=== PATIENT | male | born 1970 | race Hispanic/Latino ===

== ENCOUNTER 2017-01-29 14:30 | Inpatient (IN) ==
[2017-01-29] MEDS ORDERED: ZOFRAN ONE (14:59)
[2017-01-29] MEDS ORDERED: ZOFRAN IV ONE ×2 (15:02→15:06)
--- NOTE | 2017-01-29 15:30 | Diag Imaging Result Doc PS360 ---
HEAD W/O CONTRAST - 01/29/2017 INDICATION: altered mental status TECHNIQUE: A CT dose reduction protocol was used. COMPARISON: None FINDINGS: There is a superior right scalp contusion. No skull fractures. No intracranial mass or hemorrhage. There is some mild subcortical cerebral white matter hypodensity consistent with chronic microvascular disease. This also affects the [place]. The sinuses are clear. IMPRESSION: 1. Right superior frontal scalp contusion. 2. Mild chronic microvascular disease. 3. No intracranial hemorrhage. Electronically signed by Paul Garcia 01/29/2017 3:28 PM
--- NOTE | 2017-01-29 15:31 | Diag Imaging Result Doc PS360 ---
CHEST-1 VIEW - 01/29/2017 INDICATION: altered mental status TECHNIQUE: COMPARISON: None FINDINGS: There are surgical clips in the region of the right hilum. There are surgical suture lines in the right lung base. The right lung demonstrates volume loss suggesting a prior lobectomy. Overall lung volumes are low. No focal infiltrates, pneumothorax, or pleural effusion. Heart size is grossly normal. IMPRESSION: Low lung volumes. No acute disease. Electronically signed by Paul Garcia 01/29/2017 3:29 PM
[2017-01-29 16:12] LABS: MANUAL DIFF NEEDED? NO
[2017-01-29 16:12] LABS: URINE CULTURE NEEDED? NO; URINE MICRO REVIEW NEEDED? NO; URINE SOURCE CLEAN CATCH
[2017-01-29 16:18] LABS: BILIRUBIN URINE NEGATIVE (NEGATIVE); BLOOD URINE MODERATE (NEGATIVE); COLOR YELLOW; GLUCOSE URINE 500 mg/dL (NEGATIVE); LEUKOCYTES URINE NEGATIVE (NEGATIVE); NITRITE URINE NEGATIVE (NEGATIVE); PH URINE 6.5; PROTEIN URINE 100 mg/dL (NEGATIVE); SP GRAVITY URINE 1.008; TURBIDITY URINE CLEAR (CLEAR); UROBILINOGEN URINE NORMAL (NORMAL)
[2017-01-29 16:19] LABS: UR EPITHELIAL CELLS <10 /HPF (<10); URINE BACTERIA NEGATIVE /HPF; URINE RBC <10 /HPF (<10); URINE WBC <10 /HPF (<10)
[2017-01-29 16:20] LABS: BASO% 0.1 % (0.0-0.8); EOS# 0.02 X1000 (0.0-0.7); EOS% 0.3 % (0.0-10.0); HEMATOCRIT 45.6 % (42.0-52.0); HEMOGLOBIN 15.6 g/dL (14.0-18.0); LYMPH# 0.89 X1000 (1.2-3.4); MCH 33.1 PG (27-31); MCHC 34.2 g/dL (33-37); MCV 96.8 FL (81-99); MONO# 0.85 X1000 (0.11-0.59); MONO% 12.4 % (1.7-9.3); MPV 11.4 FL (7.4-10.4); NEUT% 74.2 % (42.2-75.2); PLT 71 X1000 (130-400); RBC 4.71 XMIL (4.7-6.1)
[2017-01-29 16:26] LABS: UR AMPHETAMINES QUAL NONE DETECTED (NONE DETECT); UR BARBITUATES QUAL NONE DETECTED (NONE DETECT); UR BENZODIAZEPIN QUAL NONE DETECTED (NONE DETECT); UR CANNABINOIDS QUAL NONE DETECTED (NONE DETECT); UR COCAINE QUAL NONE DETECTED (NONE DETECT); UR METHADONE QUAL NONE DETECTED (NONE DETECT); UR OPIATES QUAL NONE DETECTED (NONE DETECT); UR OXYCODONE QUAL NONE DETECTED (NONE DETECT); UR PCP QUAL NONE DETECTED (NONE DETECT)
[2017-01-29] MEDS ORDERED: NS 1,000 ML IV ONE ×3 (16:29→19:36)
[2017-01-29 16:52] LABS: AGAP 18; ALBUMIN 5.4 g/dL (3.5-5.0); ALKALINE PHOSPHATASE 79 U/L (32-122); BUN 5 mg/dL (8-22); CALCIUM 9.6 mg/dL (8.8-10.2); CHLORIDE 87 mmol/L (98-107); COSMO 270; GOT 158 U/L (10-34); GPT 78 U/L (10-44); POTASSIUM 3.2 mmol/L (3.5-5.1); SODIUM 134 mmol/L (136-145); TCO2 29 mmol/L (25-35); TOTAL BILIRUBIN 1.68 mg/dL (0.20-1.00); TOTAL PROTEIN 8.9 g/dL (6.3-8.3)
[2017-01-29] MEDS ORDERED: ATIVAN IV ONE (17:16)
[2017-01-29] MEDS ORDERED: ZOFRAN IV PRN (17:40)
[2017-01-29] MEDS ORDERED: ATIVAN IV PRN (17:40)
[2017-01-29] MEDS ORDERED: M.V.I.-12 10 ML, FOLIC ACID 1 MG, MAGNESIUM SULFATE 1 GM, THIAMINE 100 MG in NS 1,000 ML IV ONE (17:40)
--- NOTE | 2017-01-29 17:46 | PROVIDER DOCUMENTATION ---
This chart was entered by Sage Smith Scribe, acting as scribe for Jacob Greenberg MD. HPI-Neurological Disorder - General Chief Complaint: Unresponsive Stated Complaint: UNRESPONSIVE Time Seen by Provider: 01/29/17 14:38 Source: EMS, RN notes reviewed Unable to obtain history due to:: altered Allergies/Adverse Reactions: Patient Allergies Allergy/AdvReac Type Severity Reaction Status Date / Time No Known Allergies Allergy Verified 01/29/17 14:57 Home Medications: Home Medication List Medication Instructions Recorded Confirmed Last Taken Type Unobtainable [Home Meds 01/29/17 01/29/17 Unknown History Unobtainable] - History of Present Illness-Neuro Nature of Presenting Problem: Patient is a 47 yo/ M that presents to the ER via EMS after being found unresponsive in the middle of the street. patient has had vomiting since. it appears he might have hit his head but patient is unsure. Headache Location: reports: frontal (right) Severity: reports: moderate, severe Onset/Duration: reports: unsure Timing: reports: improving Context: reports: found unresponsive by bystander, head injury (questionable) Character of Altered Mental Status: reports: unresponsive New weakness or altered sensation location:: reports: none Cognitive Baseline: alert, oriented x3 Gait Baseline: walks without assistance Associated Symptoms: reports: nausea, vision changes. denies: headache, neck/ back pain, seizures, sleepy, slurred speech Similar Symptoms Previously?: No Recently seen or treated by another doctor?: No Review of Systems - Adult - REVIEW OF SYSTEMS - ADULT ROS:: limited per condition Constitutional: denies: chills, fever Eyes: denies: decreased vision, blurred vision, double vision Ears, Nose, Mouth & Throat: reports: no symptoms reported Cardiovascular: reports: no symptoms reported Respiratory: reports: no symptoms reported Gastrointestinal: reports: nausea, vomiting Genitourinary: reports: no symptoms reported Musculoskeletal: reports: no symptoms reported Integumentary: reports: no symptoms reported Neurological: reports: other (unresponsive moment). denies: numbness Psychiatric: reports: no symptoms reported Endocrine: reports: no symptoms reported Hematologic/Lymphatic: reports: no symptoms reported Allergic/Immunologic: reports: no symptoms reported All Other Systems: Reviewed and Negative Past History - Adult - PAST MEDICAL HISTORY-ADULT Review of Records: reports: Old Records Reviewed, Nursing Assessment Review, Medications Reviewed - PRIOR SURGERIES/PROCEDURES Surgical/Procedure History: reports: reviewed, not pertinent - IMMUNIZATION STATUS Childhood Immunizations: See Nurse Assessment Flu Vaccine: See Nurse Assessment - FAMILY HISTORY Family History: reviewed, not pertinent - SOCIAL HISTORY Living Situation: family Physical Exam- Neurological - Physical Exam-Neuro Initial Vital Signs Reviewed: Yes General Appearance: alert, mild distress, anxious Eye Exam: bilateral eye: PERRL HENMT: normal ENT inspection Neck: full range of motion, normal inspection. 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 nml as tested, no motor/sensory deficits Integumentary: warm/dry, abrasion(s) (right forehead) Psych/Mental Status: normal mood/affect, oriented x 3 - Glascow Coma Scale Best Eye Response: (4) open spontaneously Best Verbal Response: (5) oriented Best Motor Response: (6) obeys commands Total Glascow Score: 15 Progress - PLAN OF CARE/RESULTS Progress/Plan/Lab Results: Vital Signs - 8 hr 01/29/17 14:38 01/29/17 16:20 Temperature 98.3 F Pulse Rate 109 H 118 H Respiratory Rate 18 18 Blood Pressure 179/115 151/117 O2 Sat by Pulse Oximetry 100 98 Laboratory Results - last 24 hr 01/29/17 01/29/17 01/29/17 15:00 15:00 15:00 WBC RBC Hgb Hct MCV MCH MCHC RDW Std Deviation Plt Count MPV Immature Gran % (Auto) Neut % (Auto) Lymph % (Auto) [place] % (Auto) Eos % (Auto) Baso % (Auto) Immature Gran # (Auto) Neut # (Auto) Lymph # (Auto) [place] # (Auto) Eos # (Auto) Baso # (Auto) Sodium 134 L Potassium 3.2 L Chloride 87 L Carbon Dioxide 29 Anion Gap 18 BUN 5 L Creatinine 1.0 Estimated GFR/1.73 m2 > 60 BUN/Creatinine Ratio 5 Glucose 183 H Calculated Osmolality 270 Calcium 9.6 Total Bilirubin 1.68 H AST 158 H ALT 78 H Alkaline Phosphatase 79 Troponin T < 0.010 Total Protein 8.9 H Albumin 5.4 H Globulin 3.5 Albumin/Globulin Ratio 1.5 Urine Source Urine Color Urine Turbidity Urine pH Ur Specific [place] Urine Protein Ur Glucose (Stick) Ur Ketones (Stick) Urine Blood Urine Nitrite Urine Bilirubin Urobilinogen Dipstick Urine Leukocytes Urine WBC (Auto) Urine RBC (Auto) U Epithel Cells (Auto) Urine Bacteria (Auto) Urine Opiates Screen Ur Oxycodone Screen Ur Methadone, Qual Ur Barbiturates Screen Ur Phencyclidine Scrn Ur Amphetamines Screen U Benzodiazepines Scrn Urine Cocaine Screen U Cannabinoids Screen Plasma/Serum Ethyl Alc 22 H 01/29/17 01/29/17 01/29/17 15:00 15:47 15:47 WBC 6.84 RBC 4.71 Hgb 15.6 Hct 45.6 MCV 96.8 MCH 33.1 H MCHC 34.2 RDW Std Deviation 13.8 Plt Count 71 L MPV 11.4 H Immature Gran % (Auto) 0.0 Neut % (Auto) 74.2 Lymph % (Auto) 13.0 L [place] % (Auto) 12.4 H Eos % (Auto) 0.3 Baso % (Auto) 0.1 Immature Gran # (Auto) 0.00 Neut # (Auto) 5.07 Lymph # (Auto) 0.89 L [place] # (Auto) 0.85 H Eos # (Auto) 0.02 Baso # (Auto) 0.01 Sodium Potassium Chloride Carbon Dioxide Anion Gap BUN Creatinine Estimated GFR/1.73 m2 BUN/Creatinine Ratio Glucose Calculated Osmolality Calcium Total Bilirubin AST ALT Alkaline Phosphatase Troponin T Total Protein Albumin Globulin Albumin/Globulin Ratio Urine Source CLEAN CATCH Urine Color YELLOW Urine Turbidity CLEAR Urine pH 6.[address] [place] 1.008 Urine Protein 100 A Ur Glucose (Stick) 500 A Ur Ketones (Stick) 10 A Urine Blood MODERATE A Urine Nitrite NEGATIVE Urine Bilirubin NEGATIVE Urobilinogen Dipstick NORMAL Urine Leukocytes NEGATIVE Urine WBC (Auto) <10 Urine RBC (Auto) <10 U Epithel Cells (Auto) <10 Urine Bacteria (Auto) NEGATIVE Urine Opiates Screen NONE DETECTED Ur Oxycodone Screen NONE DETECTED Ur Methadone, Qual NONE DETECTED Ur Barbiturates Screen NONE DETECTED Ur Phencyclidine Scrn NONE DETECTED Ur Amphetamines Screen NONE DETECTED U Benzodiazepines Scrn NONE DETECTED Urine Cocaine Screen NONE DETECTED U Cannabinoids Screen NONE DETECTED Plasma/Serum Ethyl Alc Orders Category Date Time Status HEAD W/O CONTRAST [CT] Stat Exams 01/29/17 15:03 Completed cxr [CHEST-1 VIEW] [RAD] Stat Exams 01/29/17 15:08 Completed ACETAMINOPHEN [TDM] Stat Lab 01/29/17 17:41 Ordered CBC WITH ELECTRONIC DIFF [HEME] Stat Lab 01/29/17 15:00 Completed COMPREHENSIVE METABOLIC PANEL [CHEM] Stat Lab 01/29/17 15:00 Completed ETOH [ALCOHOL BLOOD] Stat Lab 01/29/17 15:00 Completed SALICYLATES [TDM] Stat Lab 01/29/17 17:41 Ordered TROPONIN T Stat Lab 01/29/17 15:00 Completed UA NIMS W/REFLEX CULT [URINALYSIS] Stat Lab 01/29/17 15:47 Completed URINE DRUG SCREEN Stat Lab 01/29/17 15:47 Completed 0.9% Sodium Chloride Inj [Ns] 1,000 ml Med 01/29/17 16:29 Discontinued IV 999 mls/hr 0.9% Sodium Chloride Inj [Ns] 1,000 ml Med 01/29/17 16:30 Discontinued IV 999 mls/hr Insulin Lispro [Humalog] Med 01/29/17 21:00 Active See Protocol SUBQ 0700,1100,1600,2100 Lorazepam [Ativan] Med 01/29/17 17:40 Active 1 mg IV Q4H PRN PRN Lorazepam [Ativan] Med 01/29/17 17:16 Discontinued 2 mg IV NOW ONE Lorazepam [Ativan] Med 01/29/17 17:40 Active 2 mg IV Q4H PRN PRN Mvi [M.v.i.-12] 10 ml Med 01/29/17 17:45 Ordered Folic Acid 1 mg Magnesium Sulfate 1 gm Thiamine 100 mg 0.9% Sodium Chloride Inj [Ns] 1,000 ml IV DAILY Mvi [M.v.i.-12] 10 ml Med 01/29/17 17:40 Active Folic Acid 1 mg Magnesium Sulfate 1 gm Thiamine 100 mg 0.9% Sodium Chloride Inj [Ns] 1,000 ml IV ONCE Ondansetron [Zofran] Med 01/29/17 17:40 Active 4 mg IV Q4H PRN PRN Ondansetron [Zofran] Med 01/29/17 14:59 Discontinued 8 mg .ROUTE .STK-MED ONE Ondansetron [Zofran] Med 01/29/17 15:02 Discontinued 8 mg IV NOW ONE Ondansetron [Zofran] Med 01/29/17 15:06 Discontinued 8 mg IV NOW ONE EKG [EKG] Stat Ther 01/29/17 14:47 Ordered Transfer/Admit Order [TRANSFER] Routine Transfer 01/29/17 17:36 Ordered Result Diagrams: 01/29/17 15:00 01/29/17 15:00 - CT/MRI 1 CT Study: Head Impression: Abnormal CT Results: scalp contusion, microvascular changes, nad - CONSULTS/PCP/HOSPITALIST Notification #1 *Consult/PCP/Hospitalist*: Time Discussed: 17:45 Consult Disposition: Will see in ED, Admit Departure - Departure Date of Disposition Decision: 01/29/17 Time of Disposition Decision: 17:45 DIAGNOSIS: Altered mental status, Dehydration, Nausea & vomiting Disposition: ADMITTED INPATIENT 09 Certified Medical Emergency: Emergent Condition: Stable - Critical Care Note This patient required my direct & personal management of CC.: Yes Total Time (mins): 35 Critical Care Statement: This patient required my direct personal management to treat or rule out processes, the absence of which, could potentiallly result in sudden, clinically significant life or limb threatening deterioration. Attestation - Physician/ NAZIA Attestation The physician spent face to face time with patient:: Yes Advanced Practice Provider documentation review:: Supervising physician onsite and consulted in the evaluation and care of this patient. The physician did have a face to face encounter with the patient. This chart was documented by the indicated scribe, (Sage Smith, Nery) and accurately reflects the services I performed and decisions made by me, Jacob Greenberg MD, as attested by the provider's signature.
[2017-01-29 18:02] LABS: ACETAMINOPHEN < 1.2 ug/mL (10-30)
[2017-01-29] MEDS ORDERED: KLOR-CON PO ONE (18:05)
[2017-01-29] MEDS ORDERED: KEPPRA PO ONE (18:09)
[2017-01-29] MEDS ORDERED: M.V.I.-12 10 ML, FOLIC ACID 1 MG, MAGNESIUM SULFATE 1 GM, THIAMINE 100 MG in NS 1,000 ML IV SCH (18:15)
[2017-01-29] MEDS ORDERED: NS 1,000 ML ONE (18:46)
--- NOTE | 2017-01-29 18:51 | HISTORY AND PHYSICAL ---
CHIEF COMPLAINT: Altered mental status. HISTORY OF PRESENT ILLNESS: A 47-year-old male with a past medical history of diabetes, seizure disorder and hypertension was brought to the emergency department via the EMS after being found unresponsive in the middle of the street. As per the patient, he was found at home. He states that he took a nap at noon and then after that he does not remember anything. As per the patient also, he was found by his family. When he woke up, he was already at the hospital. Apparently he vomited and he hit his head at the level of the right frontal area. He states that he does not take any kind of medication for blood pressure or seizures, and sometimes he takes treatment for diabetes, but he does not remember the name of the pill. Apparently, the last time that he had a seizure was 5 years ago and he does not remember if he has been on any kind of seizure treatment before. His alcohol level was 22 and as per the patient, he only drinks 2-3 times per week and only to 1-2 beers. Today, he drank a beer in the morning. At the moment of my physical examination, this patient was completely alert and oriented x3, he only speaks [place], he was following commands and moving all 4 extremities. Since apparently this patient has a seizure disorder, I will admit this patient to the ICU. I will ask for an EEG. CT scan of the head was already done at the emergency department and showed right superior frontal scalp contusion, mild chronic microvascular disease and no intracranial hemorrhage. Laboratory showed mild hyponatremia as well as hypokalemia. Glucose was 183. AST and ALT are elevated. Albumin was 5.4. REVIEW OF SYSTEMS: All the 14 points of the review of system were reviewed, all of them negative except as stated as per HPI. PAST SURGICAL HISTORY: Apparently he had a thoracic tube placed on the right side because of a pleural effusion, but apparently that was also infected and they decided to do an upper open thoracotomy. He did not say any specific details about it, but this was done back in 2016. PAST MEDICAL HISTORY: Diabetes, hypertension, seizure disorder. SOCIAL HISTORY: He is . He lives with his family. 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 He does not smoke or do drugs, and apparently he drinks 3 times per week, only beers and only 1-2 beers a day. PHYSICAL EXAMINATION: VITAL SIGNS: Temperature 98.3 degrees, pulse 118, respiratory rate 20, blood pressure 154/107, O2 saturation 96% on room air. HEENT: Head normocephalic. He has a right forehead edema secondary to trauma. NECK: Is supple. No JVD. No masses. Central trachea. CHEST: Clear to auscultation. No wheezing. No rales. He has a noted scar on the right side. ABDOMEN: Soft, mild tenderness to palpation at the level of the right upper quadrant. Nondistended. EXTREMITIES: No edema. No clubbing. No cyanosis. NEUROLOGICAL: The patient is alert and oriented x3. He moves all 4 extremities. He is answering all my questions. LABORATORY: WBC 6.8, hemoglobin 15.6, hematocrit 45.6, platelets 71,000. Sodium 134, potassium 3.2, chloride 87, bicarbonate 29, BUN 5, creatinine 1, glucose 183, AST 158. ALT 78. Total bilirubin 1.6. Albumin 5.4. ASSESSMENT AND PLAN: 1. Seizure disorder, I want to give him a 1 time dose of Keppra and tomorrow we will re-evaluate this patient. I will also ask for an EEG and probably I will ask for Neurology evaluation and follow up. 2. Type 2 diabetes, uncontrolled. I will ask for a hemoglobin A1c. His blood sugar is elevated. I will do sliding scale insulin and pattern of blood sugar. 3. High blood pressure. I will put this patient on amlodipine twice a day. I will monitor his blood pressure at the ICU. 4. Thrombocytopenia. I do not have any past records of this patient. I will monitor. I am not quite sure. Probably this patient has a chronic liver disease secondary to alcohol abuse, but he denies that. 5. Possible alcohol abuse as above. This patient will be transferred to the ICU because of the seizure disorder. He will be on Ativan p.r.n., blood pressure medication and insulin. He will be placed on IV fluids, banana bag. I asked already for an abdominal ultrasound and an EEG. I will continue to monitor. cc: Ilia Tejada MD
[2017-01-29 19:38] LABS: URINE CULTURE NEEDED? NO; URINE MICRO REVIEW NEEDED? NO; URINE SOURCE CATH
[2017-01-29] MEDS: M.V.I.-12 10 ML, FOLIC ACID 1 MG, MAGNESIUM SULFATE 1 GM, THIAMINE 100 MG in NS 1,000 ML IV SCH (19:47)
[2017-01-29 19:51] LABS: BILIRUBIN URINE NEGATIVE (NEGATIVE); BLOOD URINE MODERATE (NEGATIVE); COLOR STRAW; GLUCOSE URINE 300 mg/dL (NEGATIVE); LEUKOCYTES URINE NEGATIVE (NEGATIVE); NITRITE URINE NEGATIVE (NEGATIVE); PROTEIN URINE 50 mg/dL (NEGATIVE); SP GRAVITY URINE 1.007; TURBIDITY URINE CLEAR (CLEAR); UROBILINOGEN URINE NORMAL (NORMAL)
[2017-01-29 19:52] LABS: UR EPITHELIAL CELLS <10 /HPF (<10); URINE BACTERIA NEGATIVE /HPF; URINE RBC <10 /HPF (<10); URINE WBC <10 /HPF (<10)
[2017-01-29] MEDS: ATIVAN IV PRN (19:52)
[2017-01-29] MEDS: TYLENOL PO PRN (19:57)
[2017-01-29] MEDS: NORVASC PO SCH (19:59)
[2017-01-29] MEDS: HUMALOG SUBQ SCH (20:00)
--- NOTE | 2017-01-29 22:11 | Diag Imaging Result Doc PS360 ---
US ABDOMEN-COMPLETE - 01/29/2017 INDICATION: RUQ pain, R/O cirrhosis COMPARISON: None FINDINGS: Exam is very challenging due to excessive bowel gas. The liver is of severely increased echotexture with significant shadowing. No liver masses. The gallbladder, and kidneys are normal. Pancreas and spleen are obscured. No obvious free fluid. Common bile duct measures 5 mm. Aorta, IVC, and main portal vein are obscured. IMPRESSION: Very challenging exam. Severely abnormal liver probably fatty liver disease. Electronically signed by Paul Garcia 01/29/2017 10:09 PM
[2017-01-30 04:54] LABS: MANUAL DIFF NEEDED? NO
[2017-01-30 05:06] LABS: BASO% 0.1 % (0.0-0.8); EOS# 0.01 X1000 (0.0-0.7); EOS% 0.1 % (0.0-10.0); HEMATOCRIT 43.5 % (42.0-52.0); LYMPH# 0.91 X1000 (1.2-3.4); LYMPH% 12.4 % (20.5-51.1); MCH 33.6 PG (27-31); MCHC 34.5 g/dL (33-37); MCV 97.3 FL (81-99); MONO# 0.85 X1000 (0.11-0.59); MONO% 11.6 % (1.7-9.3); NEUT% 75.8 % (42.2-75.2); PLT 56 X1000 (130-400); RBC 4.47 XMIL (4.7-6.1)
[2017-01-30 05:24] LABS: AGAP 19; ALBUMIN 4.2 g/dL (3.5-5.0); ALKALINE PHOSPHATASE 62 U/L (32-122); BUN 7 mg/dL (8-22); CALCIUM 9.1 mg/dL (8.8-10.2); CHLORIDE 97 mmol/L (98-107); COSMO 277; GOT 133 U/L (10-34); GPT 65 U/L (10-44); POTASSIUM 3.1 mmol/L (3.5-5.1); SODIUM 139 mmol/L (136-145); TCO2 23 mmol/L (25-35); TOTAL BILIRUBIN 1.99 mg/dL (0.20-1.00); TOTAL PROTEIN 7.5 g/dL (6.3-8.3)
[2017-01-30 05:25] LABS: IRON SATURATION 48 %; TIBC 312 ug/dL
[2017-01-30 05:28] LABS: HEMOGLOBIN A1C 6.2 % (4.8-6.0)
[2017-01-30 05:33] LABS: HDL 121 mg/dL (35-55); LDL 96 mg/dL; TOTAL IRON 151 ug/dL (53-167); TRIGLYCERIDES 56 mg/dL (39-160); UNBOUND IRON 161 ug/dL (112-346); VLDL 11 mg/dL
[2017-01-30] MEDS: HUMALOG SUBQ SCH ×5 (06:01→21:00)
[2017-01-30] MEDS ORDERED: KLOR-CON PO ONE (08:32)
[2017-01-30] MEDS ORDERED: MISC. PHARMACY COMMUNICATION SCH (08:45)
[2017-01-30] MEDS ORDERED: KEPPRA PO SCH (09:00)
[2017-01-30] MEDS: NORVASC PO SCH ×2 (09:09→20:21)
[2017-01-30 10:55] LABS: HEPATITIS PROFILE ACUTE SEE COMMENTS
--- NOTE | 2017-01-30 11:54 | EKG Report ---
Test Performed on : 01/30/2017 08:52:43 AM Test Reason : ICU. Not ordered in [place] Blood Pressure : / mmHG Vent. Rate : 090 BPM Atrial Rate : 090 BPM P-R Int : 174 ms QRS Dur : 096 ms QT Int : 382 ms P-R-T Axes : 049 -13 031 degrees QTc Int : 467 ms Normal sinus rhythm. Normal ECG When compared with ECG of 29-JAN-2017 15:42, Questionable change in QRS axis Nonspecific ST and T wave abnormality early precordial leads Confirmed by Neptali Murry DO ([id number]) on 02/01/2017 10:31:08 AM
--- NOTE | 2017-01-30 14:16 | PROGRESS NOTE ---
DATE: 01/30/2017 SUBJECTIVE: Mr. Love is resting comfortably in bed, no acute events overnight. He is tolerating p.o. He is alert and oriented x3, he looks stable. I will transfer this patient to the floor. OBJECTIVE: Vital Signs: Temperature 98.5 degrees, pulse 88, respiratory rate 20, blood pressure 130/86, oxygen saturation 98 on 2 L of nasal cannula. HEENT: Head normocephalic. PERRLA. He has a right forehead edema secondary to trauma. Neck: Supple. No JVD. No masses. Central trachea. Chest: Clear to auscultation. No wheezing. No rales. He has a scar on the right side. Abdomen: Soft. Mild distended. Tympanic. Mild tenderness to palpation on the level of the right upper quadrant. Positive bowel sounds. Extremities: No edema. No clubbing. No cyanosis. Neurological: The patient is alert and oriented x3. He is answering all my questions. He moves all 4 extremities. LABORATORY: WBC 7.35, hemoglobin 15, hematocrit 43.5, platelets 56,000. Sodium 139, potassium 3.1, chloride 97, bicarbonate 23, BUN 7, creatinine 0.7, glucose 125. Hemoglobin A1c 6.2. Calcium 9.1. ASSESSMENT AND PLAN: 1. Seizure disorder. I talked to a family member today, Mrs. Cavazos, and she states that this patient is an alcoholic. This patient told me that he was found at home because he fell off his couch but Mrs. Cavazos states that he was found on the street. And I asked her about his past medical history and she corroborated this information about seizure disorder. For now, we will continue with Don twice a day, Neurology on board, we will follow their recommendations. Hopefully tomorrow we will discharge this patient. Pending EEG. 2. Type 2 diabetes. Hemoglobin A1c is 6.2. I will continue with the same management for now. 3. Hypertension. Continue with amlodipine twice a day. The blood pressure at this moment is the 130s. We will monitor. 4. Thrombocytopenia. This is likely secondary to liver problems, I did an ultrasound that showed the possibility of fatty liver and also showed excessive gas. Will monitor. 5. Alcohol abuse. This patient has been highly advised against alcohol abuse. I will continue with daily cessation education but he does not seem to be honest with me. I think he will not quit drinking at this moment. I had a large conversation with one of the family members, Mrs. Cavazos, her phone number [phone], daily in the same house. Per . Macy this patient drinks every day and she believes that probably more than 8 cans of beer daily. CRITICAL CARE TIME: 35 minutes. cc: Ilia Tejada MD
--- NOTE | 2017-01-30 14:59 | CONSULTATION ---
DATE OF CONSULTATION: 01/30/2017 HISTORY OF PRESENT ILLNESS: Mr. Love is 47 years old. He has apparent previous history of seizures with uncertain features, frequency, management. I believe that he has not taken medicine to control seizures over the years. I am not certain when the first seizure episode occurred. He presented this time with significant serum ethanol level. Urine drug screen was negative otherwise. Labs showed sodium 134, glucose 183, nothing else remarkable. He has not had a definite seizure recognized since admission. There is reported to be past history of hypertension and diabetes mellitus and he was not taking medicines for those problems. Workup includes noncontrast CT of the head reported to show evidence of right scalp contusion but no evidence of intracranial problem. EEG completed this morning shows left frontotemporal epileptiform discharge but no electrographic seizure recorded. He has had levetiracetam 500 mg b.i.d. since admission. He has had p.r.n. lorazepam but I do not think he has required a dose of that in the last 12 hours or so. PHYSICAL EXAMINATION: On exam, he is awake, alert, attentive, appropriate. Speech is not dysarthric. He followed simple commands when he could understand them. He did well on finger-to- nose testing. I observed him feeding himself using both hands, chewing and swallowing without difficulty. Head and neck are unremarkable. Visual field is full. I did not test his gait. IMPRESSION/PLAN: Reported history of seizures, this time found down and brought to the emergency room with significant ethanol level and some early evidence of global encephalopathy, based on his family report. That resolved and he has been awake and alert here with no further seizure apparent. I do not have a history to suggest definite focal feature to previous seizures, but the EEG findings are consistent with likely left hemisphere focus. I presume that he had a seizure at home responsible for his transient disturbed consciousness and rapid spontaneous recovery. In light of his history of previous seizures and EEG findings, I agree that he needs to be treated with medicine for seizure control. Levetiracetam is a good choice and he seems to be tolerating that, thus far. I will empirically increase his dose to 750 mg b.i.d., and I will be glad to see him again if needed. I encouraged him to consider ethanol abstinence. We briefly discussed risk for seizure with ethanol withdrawal but he does not appear to have ethanol withdrawal now and I do not think ethanol withdrawal was responsible for this episode. I am not certain about possible association of ethanol withdrawal and some of his previous seizure episodes. Thanks for asking me to see Mr. Love. cc: MD AMOR Ibarra III
--- NOTE | 2017-01-30 15:13 | EEG REPORT ---
DATE: 01/29/2017 COMMENT: This is a digitally recorded EEG, done portably in the ICU, on a 47- year-old patient with reported previous history of seizures, possible recent seizure. FINDINGS: Portions of the record are obscured by muscle contraction and movement artifact but overall interpretation is not hindered. There is epileptiform discharge with phase reversal at the F3 electrode, mostly sharp wave and repetitive sharp wave discharge. No electrographic seizure was recorded. Background contains polymorphic and rhythmic theta frequencies at low amplitude across the hemispheres symmetrically. There was not sustained posterior dominant rhythm identified. Drowsing occurred briefly. Stage 2 sleep was not recorded. INTERPRETATION: Abnormal EEG because of left frontotemporal epileptiform discharge. CORRELATION: This would correlate with clinical seizure. cc: MD Ilia Ibarra III, MD [facility]
[2017-01-30] MEDS: ATIVAN IV PRN ×2 (16:31→20:21)
[2017-01-30] MEDS ORDERED: LIBRIUM PO ONE (16:42)
[2017-01-30 18:29] LABS: INR 1.14; PROTIME 12.1 Seconds (9.2-11.7)
[2017-01-30] MEDS: LIBRIUM PO SCH (20:21)
[2017-01-30] MEDS: KEPPRA PO SCH (20:21)
[2017-01-30] MEDS ORDERED: VALIUM IV ONE (22:33)
[2017-01-30] MEDS ORDERED: VALIUM ONE (22:34)
[2017-01-30] MEDS ORDERED: GEODON ONE (22:42)
[2017-01-30] MEDS ORDERED: STERILE WATER INJ. INJ PRN (22:55)
[2017-01-30] MEDS ORDERED: GEODON IM PRN (22:55)
[2017-01-30] MEDS ORDERED: PHENOBARBITAL IV PRN (23:13)
[2017-01-30] MEDS: M.V.I.-12 10 ML, FOLIC ACID 1 MG, MAGNESIUM SULFATE 1 GM, THIAMINE 100 MG in NS 1,000 ML IV SCH (23:29)
[2017-01-31] MEDS: LIBRIUM PO SCH ×4 (01:27→20:35)
[2017-01-31] MEDS: ATIVAN IV PRN ×8 (01:27→18:09)
[2017-01-31] MEDS: HUMALOG SUBQ SCH ×6 (01:48→20:40)
[2017-01-31] MEDS: PHENOBARBITAL IV PRN ×3 (03:48→11:24)
[2017-01-31 06:28] LABS: MANUAL DIFF NEEDED? NO
[2017-01-31 06:35] LABS: BASO% 0.2 % (0.0-0.8); EOS# 0.05 X1000 (0.0-0.7); EOS% 0.8 % (0.0-10.0); HEMATOCRIT 43.5 % (42.0-52.0); HEMOGLOBIN 14.8 g/dL (14.0-18.0); LYMPH# 0.87 X1000 (1.2-3.4); LYMPH% 14.2 % (20.5-51.1); MCH 33.3 PG (27-31); MONO# 0.76 X1000 (0.11-0.59); MONO% 12.4 % (1.7-9.3); MPV 11.4 FL (7.4-10.4); NEUT% 72.4 % (42.2-75.2); PLT 69 X1000 (130-400); RBC 4.44 XMIL (4.7-6.1)
[2017-01-31 06:56] LABS: AGAP 14; ALBUMIN 4.5 g/dL (3.5-5.0); ALKALINE PHOSPHATASE 67 U/L (32-122); BUN 13 mg/dL (8-22); CALCIUM 9.2 mg/dL (8.8-10.2); CHLORIDE 99 mmol/L (98-107); COSMO 273; GOT 259 U/L (10-34); GPT 119 U/L (10-44); POTASSIUM 3.3 mmol/L (3.5-5.1); SODIUM 136 mmol/L (136-145); TCO2 23 mmol/L (25-35); TOTAL BILIRUBIN 1.69 mg/dL (0.20-1.00); TOTAL PROTEIN 7.7 g/dL (6.3-8.3)
[2017-01-31] MEDS: KEPPRA PO SCH ×2 (08:04→08:09)
[2017-01-31] MEDS: NORVASC PO SCH ×3 (08:04→20:35)
[2017-01-31] MEDS ORDERED: KLOR-CON PO ONE (08:17)
[2017-01-31] MEDS ORDERED: VALIUM ONE (08:46)
[2017-01-31] MEDS ORDERED: VALIUM IV ONE (08:49)
[2017-01-31] MEDS ORDERED: M.V.I.-12 10 ML, FOLIC ACID 1 MG, MAGNESIUM SULFATE 1 GM, THIAMINE 100 MG in NS 1,000 ML IV SCH (09:00)
[2017-01-31] MEDS: 1/2 NS 1,000 ML IV SCH ×2 (10:05→17:34)
[2017-01-31] MEDS: POTASSIUM CHLORIDE 20 MEQ/SWI 20 MEQ/100 ML IVPB IV SCH ×2 (10:05→13:49)
[2017-01-31] MEDS: KEPPRA 750 MG in NS 100 ML IV SCH ×2 (10:24→20:47)
--- NOTE | 2017-01-31 10:29 | PROGRESS NOTE ---
DATE: 01/31/2017 SUBJECTIVE: Mr. Love today is having alcohol withdrawal. That started yesterday. Also, he is having DTs. This patient has been placed in 4-point restraints, and he is getting benzodiazepines, including diazepam, Ativan, and Librium. He will stay in the ICU for close monitoring. OBJECTIVE: Vital signs: Temperature 98.6, pulse 108, respiratory rate 25, blood pressure 134/85, oxygen saturation 100% on 2 L of nasal cannula. HEENT: Head normocephalic, no trauma, JENELLE. Neck: Supple, no JVD, no masses. Central trachea. Chest: Clear to auscultation, no wheezing or rales. Abdomen: Soft, mildly distended, nontender to palpation, positive bowel sounds. Extremities: No edema, no clubbing, no cyanosis. Neurological: The patient is alert. He is able to answer his name, but he is disoriented, and he looks like he is having visual hallucinations, as well. He is moving all 4 extremities. LABORATORY DATA: WBC 6.1, hemoglobin 14.8, hematocrit 43.5, platelets 69. Sodium 136, potassium 3.3, chloride 99, bicarbonate 23, BUN 13, creatinine 0.8, glucose 108, calcium 9.2. Total bilirubin 1.69, AST 259, ALT 119. ASSESSMENT AND PLAN: 1. Alcohol withdrawal with delirium tremens. I talked to the family yesterday, Mrs. Cavazos, and she states that this patient is an alcoholic, even though he has been denying this. Today, he is having alcohol withdrawal and DTs. Continue with the benzodiazepines, 4-point restraints for now. 2. Seizure disorder. Continue with Keppra, but I will switch the Keppra from p.o. to IV. Neurology department is following this patient. 3. Type 2 diabetes. Hemoglobin A1c is 6.2. Continue with the same management for now. 4. Hypertension, stable. Continue with the same treatment. 5. Thrombocytopenia. This is likely secondary to liver disease. I did an ultrasound that showed the possibility of fatty liver, and also it showed excessive gas. 6. Alcohol abuse. I will continue with daily cessation education once this patient is better. Critical care time 35 minutes. cc: Ilia Tejada MD
[2017-01-31] MEDS: M.V.I.-12 10 ML, FOLIC ACID 1 MG, MAGNESIUM SULFATE 1 GM, THIAMINE 100 MG in NS 1,000 ML IV SCH (13:49)
[2017-01-31] MEDS ORDERED: VALIUM IV PRN (14:49)
[2017-01-31] MEDS ORDERED: ZYPREXA ZYDIS SL PRN (16:10)
[2017-01-31] MEDS: ATIVAN 20 MG in NS 190 ML IV SCH (17:06)
[2017-02-01] MEDS: ATIVAN IV PRN ×5 (00:15→22:30)
[2017-02-01] MEDS: HUMALOG SUBQ SCH ×6 (00:25→20:37)
[2017-02-01] MEDS: LIBRIUM PO SCH ×4 (02:11→20:27)
[2017-02-01] MEDS: 1/2 NS 1,000 ML IV SCH ×4 (02:11→20:28)
[2017-02-01] MEDS: ATIVAN 20 MG in NS 190 ML IV SCH ×2 (02:22→16:41)
[2017-02-01 06:23] LABS: AGAP 18; ALBUMIN 3.8 g/dL (3.5-5.0); ALKALINE PHOSPHATASE 56 U/L (32-122); BUN 9 mg/dL (8-22); CALCIUM 8.5 mg/dL (8.8-10.2); CHLORIDE 99 mmol/L (98-107); COSMO 280; GOT 271 U/L (10-34); GPT 135 U/L (10-44); POTASSIUM 3.3 mmol/L (3.5-5.1); SODIUM 141 mmol/L (136-145); TCO2 24 mmol/L (25-35); TOTAL BILIRUBIN 1.62 mg/dL (0.20-1.00)
[2017-02-01 06:50] LABS: HEMATOCRIT 39.7 % (42.0-52.0); HEMOGLOBIN 13.7 g/dL (14.0-18.0); MCH 33.9 PG (27-31); MCHC 34.5 g/dL (33-37); MCV 98.3 FL (81-99); MPV 10.3 FL (7.4-10.4); RBC 4.04 XMIL (4.7-6.1)
[2017-02-01] MEDS: KEPPRA 750 MG in NS 100 ML IV SCH ×2 (08:24→20:28)
[2017-02-01] MEDS: NORVASC PO SCH ×2 (08:25→20:27)
[2017-02-01] MEDS ORDERED: APRESOLINE IV PRN (08:38)
--- NOTE | 2017-02-01 09:15 | PROGRESS NOTE ---
DATE: 02/01/2017 SUBJECTIVE: Yesterday, Mr. Love was having more agitation. He was placed on an Ativan drip. Today, apparently he has been agitated even with this treatment until 5 a.m. today. At this moment, this patient is resting comfortably in bed. His blood pressure has been elevated. I will put this patient on a nicotine patch. OBJECTIVE: Vital Signs: Temperature 99.1 degrees, pulse 77, respiratory rate 18, blood pressure on the monitor 167/99, oxygen saturation 100% on room air. HEENT: Head normocephalic. No trauma. PERRLA. Neck: Supple. No JVD. No masses. Central trachea. Chest: Clear to auscultation. No wheezing. No rales. Abdomen: Soft. Mildly distended. Nontender to palpation. Extremities: No edema. No clubbing. No cyanosis. Neurological Examination: This patient is sleepy. He is on an Ativan drip so he is not answering or following commands. Laboratory: WBC 5.4, hemoglobin 13.7, hematocrit 39.7, platelets 72,000. Sodium 141, potassium 3.3, chloride 99, bicarbonate 24, BUN 9, creatinine 0.6, glucose 102, calcium 8.5. AST 271, ALT 135, alkaline phosphatase 56. ASSESSMENT AND PLAN: 1. Alcohol withdrawal with delirium tremens. I will continue for now with the Ativan drip. At this moment, this patient is stable. We will continue to monitor closely. 2. Alcoholic hepatitis. Continue to monitor. Stable. 3. Seizure disorder. Continue with Keppra intravenously. 4. Type 2 diabetes. Hemoglobin A1c is 6.2. Continue with the same management for now. Stable. 5. Hypertension. I have placed this patient on clonidine patch. 6. Thrombocytopenia. This is likely secondary to liver disease. I did an ultrasound that showed the possibility of fatty liver and also showed excessive gas. 7. Alcohol abuse. I will continue with daily cessation education, what this patient is more aware. CRITICAL CARE TIME: 35 minutes. cc: Ilia Tejada MD
[2017-02-01] MEDS: CATAPRES-TTS-1 TD SCH (09:17)
[2017-02-01] MEDS ORDERED: M.V.I.-12 10 ML, FOLIC ACID 1 MG, MAGNESIUM SULFATE 1 GM, THIAMINE 100 MG in NS 1,000 ML IV SCH (14:00)
[2017-02-01] MEDS: M.V.I.-12 10 ML, FOLIC ACID 1 MG, MAGNESIUM SULFATE 1 GM, THIAMINE 100 MG in NS 1,000 ML IV SCH (14:11)
[2017-02-02] MEDS: 1/2 NS 1,000 ML IV SCH ×3 (02:03→22:06)
[2017-02-02] MEDS: LIBRIUM PO SCH ×5 (02:03→22:06)
[2017-02-02] MEDS: HUMALOG SUBQ SCH ×6 (02:03→22:06)
[2017-02-02] MEDS: ATIVAN IV PRN (03:16)
[2017-02-02 05:36] LABS: MANUAL DIFF NEEDED? NO
[2017-02-02 06:23] LABS: BASO% 0.4 % (0.0-0.8); EOS# 0.08 X1000 (0.0-0.7); EOS% 1.5 % (0.0-10.0); HEMATOCRIT 45.1 % (42.0-52.0); HEMOGLOBIN 15.4 g/dL (14.0-18.0); LYMPH# 1.08 X1000 (1.2-3.4); LYMPH% 20.1 % (20.5-51.1); MCH 33.3 PG (27-31); MCHC 34.1 g/dL (33-37); MCV 97.4 FL (81-99); MONO# 0.99 X1000 (0.11-0.59); MONO% 18.4 % (1.7-9.3); MPV 10.3 FL (7.4-10.4); NEUT% 59.6 % (42.2-75.2); PLT 80 X1000 (130-400); RBC 4.63 XMIL (4.7-6.1)
[2017-02-02 08:26] LABS: AGAP 21; ALKALINE PHOSPHATASE 68 U/L (32-122); BUN 7 mg/dL (8-22); CALCIUM 8.9 mg/dL (8.8-10.2); CHLORIDE 94 mmol/L (98-107); COSMO 272; GOT 220 U/L (10-34); GPT 136 U/L (10-44); POTASSIUM 3.2 mmol/L (3.5-5.1); SODIUM 137 mmol/L (136-145); TCO2 22 mmol/L (25-35); TOTAL BILIRUBIN 1.25 mg/dL (0.20-1.00); TOTAL PROTEIN 7.4 g/dL (6.3-8.3)
[2017-02-02] MEDS: NORVASC PO SCH ×2 (08:42→22:06)
[2017-02-02] MEDS: KEPPRA 750 MG in NS 100 ML IV SCH ×2 (08:42→22:05)
[2017-02-02] MEDS: ATIVAN 20 MG in NS 190 ML IV SCH (10:25)
--- NOTE | 2017-02-02 12:27 | PROGRESS NOTE ---
DATE: 02/02/2017 SUBJECTIVE: This patient looks a little bit better today. He is awake. He is tolerating p.o. He is confused. He is oriented to person. Vital signs have been stable. We will continue with the alcohol withdrawal protocol. OBJECTIVE: Vital Signs: Temperature 97.6 degrees, pulse 94, respiratory rate 18, blood pressure 127/89, oxygen saturation 100% on room air. HEENT: Head normocephalic. No trauma. PERRLA. Neck: Supple. No JVD. No masses. Central trachea. Chest: Clear to auscultation. No wheezing. No rales. Abdomen: Soft. Mildly distended. Nontender to palpation. Extremities: No edema. No clubbing. No cyanosis. Neurological: This patient is alert. He is oriented x1, just to person. He is tolerating p.o. He is moving all 4 extremities. He has been agitated on and off. LABORATORY: WBC 5.3, hemoglobin 15.4, hematocrit 45.1, platelet 80,000. Sodium 137, potassium 3.2, chloride 94, bicarbonate 22, BUN 7, creatinine 0.7, glucose 98, calcium 8.9. ASSESSMENT AND PLAN: 1. Alcohol withdrawal with delirium tremens. Continue for now. We will continue with alcohol withdrawal protocol. He is on Ativan drip. He is stable but he is still confused. He is still in physical restraints because he has been trying to pull out his Davila and lines. Family members are at the bedside. All of their questions were answered. 2. Alcoholic hepatitis. Continue to monitor. 3. Seizure disorder. Continue with Keppra IV. 4. Type 2 diabetes. Hemoglobin A1c is 6.2. Continue with the same management for now. Stable. 5. Hypertension. Continue with clonidine patch. 6. Thrombocytopenia, likely secondary to liver disease. We did an ultrasound that showed the possibility of fatty liver and also showed excessive gas. 7. Alcohol abuse. I will continue with daily cessation education once this patient is more awake and alert. CRITICAL CARE TIME: 35 minutes. cc: Ilia Tejada MD
[2017-02-02] MEDS: M.V.I.-12 10 ML, FOLIC ACID 1 MG, MAGNESIUM SULFATE 1 GM, THIAMINE 100 MG in NS 1,000 ML IV SCH (14:27)
--- NOTE | 2017-02-02 16:18 | PROGRESS NOTE ---
DATE: 02/02/2017 Mr. Love had some restlessness and required benzodiazepine over the weekend. This morning, his attentive bilingual son is at the bedside and reports patient looks much improved. With son present, I did some bedside language testing and Mr. Love has a little bit of trouble with right/left distinction, digit distinction, naming parts of objects and he has some trouble finding words when speaking. Son reports similar problems with language apparent to family over the years when patient has been intoxicated and when he is in withdrawal. Son is aware of problems with seizure over at least the last few years and son believes seizure medications have been recommended at least once in the past but patient has not been compliant with that. We need to continue to follow clinically, consider repeat brain imaging if there is persistent language deficit but that is not urgent. I do not think another EEG would record changer today. I encouraged Mr. Love, with son serving as seismograph chief, to take his seizure medicine and to consider ethanol abstinence. No other suggestions today. cc: MD AMOR Ibarra III
[2017-02-03] MEDS: 1/2 NS 1,000 ML IV SCH ×4 (02:34→19:43)
[2017-02-03] MEDS: LIBRIUM PO SCH ×4 (02:35→19:43)
[2017-02-03] MEDS: ATIVAN 20 MG in NS 190 ML IV SCH (04:00)
[2017-02-03 05:03] LABS: AGAP 13; ALBUMIN 4.1 g/dL (3.5-5.0); ALKALINE PHOSPHATASE 64 U/L (32-122); BUN 6 mg/dL (8-22); CALCIUM 8.7 mg/dL (8.8-10.2); CHLORIDE 100 mmol/L (98-107); COSMO 275; GOT 142 U/L (10-34); GPT 109 U/L (10-44); SODIUM 139 mmol/L (136-145); TCO2 26 mmol/L (25-35); TOTAL BILIRUBIN 0.73 mg/dL (0.20-1.00); TOTAL PROTEIN 6.6 g/dL (6.3-8.3)
[2017-02-03] MEDS: HUMALOG SUBQ SCH ×4 (06:56→21:30)
[2017-02-03] MEDS ORDERED: KLOR-CON PO ONE (08:24)
[2017-02-03] MEDS: NORVASC PO SCH ×2 (08:55→20:45)
[2017-02-03] MEDS: KEPPRA 750 MG in NS 100 ML IV SCH ×2 (08:55→20:45)
--- NOTE | 2017-02-03 09:58 | PROGRESS NOTE ---
DATE: 02/03/2017 SUBJECTIVE: This patient looks a little bit better today. He is alert. He is oriented x3. He knows he is in the hospital; he does not know which one. He has been having trouble talking, but apparently this is not new. It is some kind of dysarthria. He has been on Ativan drip. I will start this patient on Librium and I will continue to monitor this patient in the ICU. He is tolerating p.o. very well. OBJECTIVE: Vital Signs: Temperature 97.9 degrees, pulse 77, respiratory rate 19, blood pressure 129/88, oxygen saturation 95% on room air. HEENT: Head normocephalic. No trauma. PERRLA. Neck: Supple. No JVD. No masses. Central trachea. Chest: Clear to auscultation. No wheezing. No rales. Abdomen: Soft, nontender, nondistended. No hepatosplenomegaly. Extremities: No edema. No clubbing. No cyanosis. Neurological examination: The patient is alert. He is oriented x3. He knows he is in the hospital. He does not know which one. He has some dysarthria. I do not see any focal weakness. LABORATORY: Sodium 139, potassium 3, chloride 100, bicarbonate 26, BUN 6, creatinine 0.7, glucose 90, calcium 8.7, total bilirubin 0.7. AST 142, ALT 109, alkaline phosphatase 64. ASSESSMENT AND PLAN: 1. Alcohol withdrawal with delirium tremens. I will start this patient on Librium and eventually I will stop the Ativan drip, p.r.n. Ativan as well. We will continue to monitor this patient closely in the ICU unit. 2. Alcoholic hepatitis. Numbers are getting better. We will continue to monitor. 3. Seizure disorder. Continue with Keppra. 4. Type 2 diabetes. Hemoglobin A1c 6.2. Continue with the same management for now. Stable. 5. Hypertension. Continue with clonidine patch. 6. Thrombocytopenia likely secondary to liver disease. We did an ultrasound that showed the possibility of fatty liver and also showed excessive gas. 7. Alcohol abuse. This patient has been highly advised against alcohol use. I will continue with daily cessation education. CRITICAL CARE TIME: 30 minutes. cc: Ilia Tejada MD
[2017-02-03] MEDS: M.V.I.-12 10 ML, FOLIC ACID 1 MG, MAGNESIUM SULFATE 1 GM, THIAMINE 100 MG in NS 1,000 ML IV SCH (14:05)
[2017-02-04] MEDS: 1/2 NS 1,000 ML IV SCH ×3 (01:48→16:30)
[2017-02-04] MEDS: LIBRIUM PO SCH ×4 (01:48→20:22)
[2017-02-04] MEDS: HUMALOG SUBQ SCH ×4 (06:05→21:10)
[2017-02-04] MEDS: NORVASC PO SCH ×2 (08:00→20:23)
[2017-02-04] MEDS: KEPPRA 750 MG in NS 100 ML IV SCH ×2 (08:00→20:58)
[2017-02-04 09:13] LABS: ALBUMIN 3.8 g/dL (3.5-5.0); ALKALINE PHOSPHATASE 68 U/L (32-122); BUN 4 mg/dL (8-22); CHLORIDE 96 mmol/L (98-107); GOT 116 U/L (10-34); GPT 103 U/L (10-44); TCO2 27 mmol/L (25-35); TOTAL BILIRUBIN 0.67 mg/dL (0.20-1.00); TOTAL PROTEIN 7.1 g/dL (6.3-8.3)
[2017-02-04 10:03] LABS: AGAP 13; CALCIUM 9.3 mg/dL (8.8-10.2); COSMO 270; POTASSIUM 3.8 mmol/L (3.5-5.1); SODIUM 135 mmol/L (136-145)
--- NOTE | 2017-02-04 12:54 | PROGRESS NOTE ---
DATE: 02/04/2017 SUBJECTIVE: The patient definitely is more alert and awake. Oriented x3. Ativan drip has been stopped. Yesterday he did not require any Ativan pushes from last night. OBJECTIVE: Vital Signs: Temperature 99.6 degrees, heart rate 108, respiratory rate 20, blood pressure 156/104, O2 saturation 96% on room air. General Examination: This is a 47-year-old, disheveled male, lying in bed, in no acute distress. HEENT: Head is normocephalic, atraumatic. Anicteric sclerae and pale conjunctivae. Mucous membranes moist. Neck: Supple. No JVD noted. No carotid bruits. No lymphadenopathy. No thyromegaly. Cardiovascular: S1, S2 heard. No murmurs, gallops, or rubs. Regular rate and rhythm. Respiratory: Clear bilaterally to auscultation. No work of breathing or using accessory muscles. Abdomen: Soft. Nontender to palpation. Bowel sounds present. No organomegaly. Extremities: No clubbing, cyanosis, or edema. Peripheral pulses present in both legs. Neurological: Patient is alert and oriented x3. Moves 4 extremities. Cranial nerves 2 through 12 grossly normal. LABORATORY DATA: White cell count 5.7, hemoglobin 15.4, hematocrit 45.1, platelets 80,000. BMP shows blood sodium 135 and glucose 148. ASSESSMENT AND PLAN: 1. Alcohol withdrawal with delirium tremens. As per nurse, the patient has been doing fine and Ativan drip has been stopped yesterday. He did not require any Ativan pushes from that time. At this point, we are going to continue with Librium. We are going to transfer this patient out of the unit today. 2. Alcoholic hepatitis. Aware. 3. Seizure disorder. We will continue with Keppra. We had a conversation with Dr. Downs and apparently this patient has been advised to continue with seizure medications for awhile. So at this point, Dr. Downs and I agreed to advise him to continue taking that medication. He will need to follow up after the patient leaves the hospital. 4. Diabetes type 2. Hemoglobin 6.2 which means very good control of diabetes. We will continue with sliding scale insulin. 5. Hypertension. The patient is on clonidine patch. 6. Alcohol abuse. Patient has been highly advised again to quit drinking alcohol. 7. Disposition. Patient is going to be transferred out of the unit today. CRITICAL CARE TIME: 40 minutes. cc: Gordo Pereira MD
[2017-02-04] MEDS: M.V.I.-12 10 ML, FOLIC ACID 1 MG, MAGNESIUM SULFATE 1 GM, THIAMINE 100 MG in NS 1,000 ML IV SCH (13:58)
[2017-02-04] MEDS: LIORESAL PO SCH (16:05)
[2017-02-05] MEDS: 1/2 NS 1,000 ML IV SCH ×2 (01:43→21:05)
[2017-02-05] MEDS: LIBRIUM PO SCH ×4 (01:43→21:08)
[2017-02-05] MEDS: HUMALOG SUBQ SCH ×4 (06:40→21:08)
[2017-02-05] MEDS: LIORESAL PO SCH ×3 (09:40→21:08)
[2017-02-05] MEDS: KEPPRA 750 MG in NS 100 ML IV SCH ×2 (09:40→21:08)
[2017-02-05] MEDS: NORVASC PO SCH ×2 (09:40→21:08)
[2017-02-05] MEDS: M.V.I.-12 10 ML, FOLIC ACID 1 MG, MAGNESIUM SULFATE 1 GM, THIAMINE 100 MG in NS 1,000 ML IV SCH (14:43)
[2017-02-05] MEDS: TYLENOL PO PRN (14:44)
--- NOTE | 2017-02-05 16:28 | PROGRESS NOTE ---
DATE: 02/05/2017 SUBJECTIVE: Patient reports feeling fine. According to nursing staff, he did not require any more Ativan IV. OBJECTIVE: Vital Signs: Temperature 99 degrees, heart rate 100, respiratory rate 16, blood pressure 132/72, O2 saturation 95% on room air. General examination: This is a 47-year-old disheveled male, lying in bed, in no acute distress. HEENT: Head is normocephalic, atraumatic. Anicteric sclerae and pale conjunctivae. Neck: Supple. No JVD noted. Cardiovascular: S1, S2 heard. No murmurs, gallops, or rubs. Respiratory: Clear bilaterally to auscultation. No work of breathing or using accessory muscles. Abdomen: Soft, nontender to palpation. Bowel sounds present. No organomegaly. Extremities: No clubbing, cyanosis, or edema. Peripheral pulses present in both legs. Neurological: Patient is alert and oriented x3. Moves 4 extremities. Cranial nerves 2-12 grossly normal. LABORATORY DATA: There is no laboratory from today. ASSESSMENT AND PLAN: 1. Alcohol withdrawal with delirium tremens. Patient has been moved from the intensive care unit yesterday. He is not requiring any more Ativan. We are going to continue with the Librium and we have added baclofen to his current treatment. 2. Alcoholic hepatitis. Aware. 3. Seizure disorder. Patient will continue with Keppra at discharge as per Dr. Downs. 4. Diabetes mellitus type 2. Very well controlled. We will continue with sliding scale insulin. 5. Hypertension. Patient is on clonidine patch. 6. Alcohol abuse. Patient highly advised to quit drinking alcohol. 7. Disposition. Physical Therapy has been consulted because the patient has become very weak while he was here and we will see what they recommend, if he needs to have any home health or going to rehab. cc: Gordo Pereira MD
[2017-02-05] MEDS ORDERED: LOPRESSOR IV ONE (22:37)
[2017-02-05] MEDS ORDERED: NS 500 ML IV ONE (22:38)
[2017-02-06] MEDS: ATIVAN IV PRN ×3 (00:46→15:13)
[2017-02-06] MEDS: LIBRIUM PO SCH ×4 (02:21→18:37)
[2017-02-06] MEDS: 1/2 NS 1,000 ML IV SCH ×4 (02:25→23:38)
[2017-02-06] MEDS: HUMALOG SUBQ SCH ×4 (06:03→21:34)
--- NOTE | 2017-02-06 07:41 | EKG Report ---
Test Performed on : 02/05/2017 10:17:21 PM Test Reason : increased HR on tele Blood Pressure : / mmHG Vent. Rate : 137 BPM Atrial Rate : 137 BPM P-R Int : 160 ms QRS Dur : 088 ms QT Int : 264 ms P-R-T Axes : 032 176 031 degrees QTc Int : 398 ms Sinus tachycardia. with premature ventricular complexes. or fusion complexes Indeterminate axis Borderline ECG When compared with ECG of 30-JAN-2017 08:52, Vent. rate has increased BY 47 BPM Nonspecific T wave abnormality, improved in early precordial leads V2-V3/septal Confirmed by Neptali Murry DO ([id number]) on 02/08/2017 8:44:36 AM
[2017-02-06] MEDS: LIORESAL PO SCH ×3 (09:21→18:36)
[2017-02-06] MEDS: KEPPRA 750 MG in NS 100 ML IV SCH ×2 (09:21→21:34)
[2017-02-06] MEDS: NORVASC PO SCH ×2 (09:21→21:34)
[2017-02-06] MEDS: M.V.I.-12 10 ML, FOLIC ACID 1 MG, MAGNESIUM SULFATE 1 GM, THIAMINE 100 MG in NS 1,000 ML IV SCH (15:12)
[2017-02-06] MEDS: TYLENOL PO PRN (15:13)
--- NOTE | 2017-02-06 18:28 | PROGRESS NOTE ---
DATE: 02/06/2017 SUBJECTIVE: Patient reports feeling fine. He reports still feeling weak. He is able to walk with physical therapy and will be using a walker. OBJECTIVE: Vital Signs: Temperature 98.5 degrees, heart rate 88, respiratory rate 16, blood pressure 100/ on room air. General examination: This is a 27-year-old, disheveled male, lying in bed, in no acute distress. HEENT: Head is normocephalic, atraumatic. Anicteric sclerae and pale conjunctivae. Mucous membranes moist. Neck: Supple. No JVD noted. Cardiovascular: S1, S2 heard. No murmurs, gallops, or rubs. Regular rate and rhythm. Respiratory: Clear bilaterally to auscultation. No work of breathing or using accessory muscles. Abdomen: Soft, nontender to palpation. Bowel sounds present. No organomegaly. Extremities: No clubbing, cyanosis, or edema. Peripheral pulses present in both legs. Neurological: Patient alert oriented x3. Moves 4 extremities. Cranial nerves 2-12 grossly normal. LABORATORY DATA: No labs from today. ASSESSMENT AND PLAN: 1. Alcohol withdrawal with delirium tremens. This condition is slowly improving. He has been moved from the intensive care unit 2 days ago. He is not requiring Ativan any more. He is on and baclofen. We will continue with the same management. 2. Alcoholic hepatitis. Aware. 3. Seizure disorder. Patient is on Keppra. He should be discharged with this medication as per Neurology. 4. Diabetes mellitus type 2. We will continue with sliding scale insulin. 5. Hypertension. Patient is on clonidine patch. 6. Alcohol abuse. Patient has been extensively advised about quitting drinking alcohol. 7. Disposition. I am planning to keep this patient over weekend to work with physical therapy hopefully during Thursday and Thursday, so on Thursday if he is feeling good we may discharge him. cc: Gordo Pereira MD
[2017-02-07] MEDS: 1/2 NS 1,000 ML IV SCH ×3 (04:47→17:56)
[2017-02-07 05:57] LABS: MANUAL DIFF NEEDED? NO
[2017-02-07 06:02] LABS: BASO% 0.5 % (0.0-0.8); EOS# 0.08 X1000 (0.0-0.7); EOS% 0.8 % (0.0-10.0); HEMATOCRIT 40.3 % (42.0-52.0); HEMOGLOBIN 13.7 g/dL (14.0-18.0); IMM GRAN# 0.04 X1000 (0.0-0.04); IMM GRAN% 0.4 % (0.0-0.5); MCH 33.5 PG (27-31); MCV 98.5 FL (81-99); MONO# 0.99 X1000 (0.11-0.59); MONO% 9.9 % (1.7-9.3); MPV 10.5 FL (7.4-10.4); NEUT% 78.4 % (42.2-75.2); PLT 173 X1000 (130-400); RBC 4.09 XMIL (4.7-6.1)
[2017-02-07] MEDS: HUMALOG SUBQ SCH ×4 (06:03→23:28)
[2017-02-07 06:13] LABS: AGAP 12; ALBUMIN 3.3 g/dL (3.5-5.0); ALKALINE PHOSPHATASE 65 U/L (32-122); BUN 7 mg/dL (8-22); CALCIUM 8.8 mg/dL (8.8-10.2); CHLORIDE 99 mmol/L (98-107); COSMO 274; GOT 62 U/L (10-34); GPT 61 U/L (10-44); POTASSIUM 3.7 mmol/L (3.5-5.1); SODIUM 138 mmol/L (136-145); TCO2 27 mmol/L (25-35); TOTAL BILIRUBIN 0.49 mg/dL (0.20-1.00); TOTAL PROTEIN 6.7 g/dL (6.3-8.3)
[2017-02-07] MEDS: KEPPRA 750 MG in NS 100 ML IV SCH ×2 (08:55→21:07)
[2017-02-07] MEDS: LIBRIUM PO SCH ×3 (08:55→16:59)
[2017-02-07] MEDS: NORVASC PO SCH ×2 (08:55→21:07)
[2017-02-07] MEDS: LIORESAL PO SCH ×3 (08:55→16:59)
--- NOTE | 2017-02-07 11:12 | PROGRESS NOTE ---
DATE: 02/07/2017 SUBJECTIVE: Patient reports feeling fine. The patient reports still feeling weak although he is able to use a walker to walk around. OBJECTIVE: Vital Signs: Temperature 98.3 degrees, heart rate 84, respiratory rate 20, blood pressure 119/76, O2 saturation 100% on room air. General examination: This is a 47-year-old male, lying in bed, in no acute distress. HEENT: Head is normocephalic, atraumatic. Anicteric sclerae and pale conjunctivae. Neck: Supple. No JVD noted. No carotid bruits. Cardiovascular: S1, S2 heard. No murmurs, gallops, or rubs. Regular rate and rhythm. Respiratory: Clear bilaterally to auscultation. No work of breathing or using accessory muscles. Abdomen: Soft, nontender to palpation. Bowel sounds present. No organomegaly. Extremities: No clubbing, cyanosis, or edema. Peripheral pulses present in both legs. Neurological: Patient alert and oriented x3. Moves 4 extremities. Cranial nerves 2-12 grossly normal. LABORATORY DATA: The CBC and BMP are unremarkable. Liver function test shows AST 62 and ALT 61. ASSESSMENT/PLAN: 1. Alcohol withdrawal with delirium tremens. That condition is improving. Currently this patient is on baclofen and on Librium. Currently he is receiving 25 mg p.o. 3 times per day. Patient is stable for that standpoint. We will continue with the same management. 2. Alcoholic hepatitis. Aware. 3. Seizure disorder. Patient is on Keppra and should be discharged on this medication as per Neurology recommendations. 4. Diabetes mellitus type 2. We will continue with sliding scale insulin. 5. Hypertension. Patient is on clonidine patch. 6. Alcohol abuse. Patient has been many times extensively advised about quitting drinking alcohol. 7. Disposition. Patient is working with physical therapy and he is still weak and because he does not have any insurance I prefer to keep him over the weekend. If on Thursday he is able to walk around by himself he will be discharged. cc: Gordo Pereira MD
[2017-02-07] MEDS: M.V.I.-12 10 ML, FOLIC ACID 1 MG, MAGNESIUM SULFATE 1 GM, THIAMINE 100 MG in NS 1,000 ML IV SCH (14:42)
[2017-02-08] MEDS: 1/2 NS 1,000 ML IV SCH ×3 (04:06→17:53)
[2017-02-08] MEDS: HUMALOG SUBQ SCH ×4 (06:19→23:06)
[2017-02-08 06:58] LABS: ALBUMIN 3.6 g/dL (3.5-5.0); CHLORIDE 94 mmol/L (98-107); POTASSIUM 3.9 mmol/L (3.5-5.1); SODIUM 137 mmol/L (136-145)
[2017-02-08 07:11] LABS: BUN 5 mg/dL (8-22); CALCIUM 9.9 mg/dL (8.8-10.2); GOT 75 U/L (10-34); GPT 75 U/L (10-44); TCO2 27 mmol/L (25-35); TOTAL BILIRUBIN 0.49 mg/dL (0.20-1.00); TOTAL PROTEIN 7.5 g/dL (6.3-8.3)
[2017-02-08 08:16] LABS: AGAP 16
[2017-02-08 08:18] LABS: COSMO 273
[2017-02-08 08:26] LABS: ALKALINE PHOSPHATASE 71 U/L (32-122)
[2017-02-08] MEDS: KEPPRA 750 MG in NS 100 ML IV SCH ×2 (09:16→20:50)
[2017-02-08] MEDS: LIORESAL PO SCH ×3 (09:16→17:52)
[2017-02-08] MEDS: CATAPRES-TTS-1 TD SCH (09:16)
[2017-02-08] MEDS: NORVASC PO SCH ×2 (09:16→20:51)
[2017-02-08] MEDS: LIBRIUM PO SCH ×3 (09:16→17:53)
[2017-02-08] MEDS ORDERED: LIBRIUM PO SCH (11:16)
--- NOTE | 2017-02-08 13:36 | PROGRESS NOTE ---
DATE: 02/08/2017 SUBJECTIVE: Patient reports feeling fine. Reports that she is trying hard day by day to try to walk around. OBJECTIVE: Vital Signs: Temperature 98.7 degrees, heart rate 84, respiratory rate 18, blood pressure 105/72, O2 saturation 97% on room air. General Examination: This is a 47-year-old male, lying in bed, in no acute distress. HEENT: Head is normocephalic, atraumatic. Anicteric sclerae and pale conjunctivae. Mucous membranes moist. Neck: Supple. No JVD noted. No carotid bruits. No lymphadenopathy. No thyromegaly. Cardiovascular: S1, S2 heard. No murmurs, gallops, or rubs. Regular rate and rhythm. Respiratory: Clear bilaterally to auscultation. No work of breathing or using accessory muscles. Abdomen: Soft. Nontender to palpation. Bowel sounds present. No organomegaly. Extremities: No clubbing, cyanosis, or edema. Peripheral pulses present in both legs. Neurological: Patient is alert and oriented x3. Moves 4 extremities. LABORATORY DATA: Reviewed. ASSESSMENT AND PLAN: 1. Alcohol withdrawal with delirium tremens. Continues to improve. No more need for Ativan IV. At this time we prefer to reduce the dose of Librium to 10 three times per day and will continue with baclofen. 2. Alcohol hepatitis. Aware. 3. Seizure disorder. Patient is on Keppra and will be discharged on this medication as per neurology recommendations. 4. Diabetes mellitus type 2. We will continue with sliding scale insulin. 5. Hypertension. Patient is on clonidine patch. 6. Alcohol abuse. Patient extensively advised about stopping drinking alcohol. 7. Disposition. Patient is working with physical therapy here in the hospital. If tomorrow he is feeling much better will discharge him home to self-care. cc: Gordo Pereira MD
[2017-02-08] MEDS: M.V.I.-12 10 ML, FOLIC ACID 1 MG, MAGNESIUM SULFATE 1 GM, THIAMINE 100 MG in NS 1,000 ML IV SCH (15:27)
[2017-02-08] MEDS: ATIVAN IV PRN (23:06)
[2017-02-09] MEDS: 1/2 NS 1,000 ML IV SCH ×3 (02:40→22:36)
[2017-02-09] MEDS: HUMALOG SUBQ SCH ×4 (06:01→22:00)
[2017-02-09 07:04] LABS: AGAP 12; ALBUMIN 3.6 g/dL (3.5-5.0); ALKALINE PHOSPHATASE 93 U/L (32-122); BUN 9 mg/dL (8-22); CALCIUM 9.4 mg/dL (8.8-10.2); CHLORIDE 93 mmol/L (98-107); COSMO 269; GOT 108 U/L (10-34); GPT 98 U/L (10-44); POTASSIUM 4.3 mmol/L (3.5-5.1); SODIUM 133 mmol/L (136-145); TCO2 28 mmol/L (25-35); TOTAL BILIRUBIN 0.37 mg/dL (0.20-1.00); TOTAL PROTEIN 7.4 g/dL (6.3-8.3)
[2017-02-09] MEDS ORDERED: TYLENOL PO PRN (08:01)
[2017-02-09] MEDS: ZOSYN 3.375 GM in NS 50 ML IV SCH ×3 (08:28→22:00)
[2017-02-09] MEDS: NORVASC PO SCH ×2 (08:29→21:59)
[2017-02-09] MEDS: LIORESAL PO SCH ×3 (08:29→17:11)
[2017-02-09] MEDS: LIBRIUM PO SCH ×3 (08:29→17:14)
[2017-02-09 08:45] LABS: BASO% 0.3 % (0.0-0.8); EOS# 0.02 X1000 (0.0-0.7); EOS% 0.2 % (0.0-10.0); HEMATOCRIT 42.4 % (42.0-52.0); HEMOGLOBIN 14.6 g/dL (14.0-18.0); IMM GRAN# 0.05 X1000 (0.0-0.04); IMM GRAN% 0.5 % (0.0-0.5); LYMPH# 0.58 X1000 (1.2-3.4); LYMPH% 5.6 % (20.5-51.1); MANUAL DIFF NEEDED? YES; MCH 33.2 PG (27-31); MCHC 34.4 g/dL (33-37); MCV 96.4 FL (81-99); MONO# 0.23 X1000 (0.11-0.59); MONO% 2.2 % (1.7-9.3); MPV 10.2 FL (7.4-10.4); NEUT% 91.2 % (42.2-75.2); PLT 170 X1000 (130-400)
--- NOTE | 2017-02-09 09:14 | PROGRESS NOTE ---
DATE: 02/09/2017 SUBJECTIVE: Patient reports started having a fever this morning and some cough with no sputum. Denies any vomiting or diarrhea. OBJECTIVE: Vital Signs: Temperature 102.8 degrees, heart rate 145, respiratory rate 24, blood pressure 131/89, O2 saturation 89% on room air. General Examination: This is a 47-year-old, male, lying in bed, in no acute distress. HEENT: Head is normocephalic and atraumatic. Anicteric sclerae and pale conjunctivae. Mucous membranes moist. Neck: Supple. No JVD noted. No carotid bruits. No lymphadenopathy. Cardiovascular Examination: S1 and S2 heard. No murmurs, gallops, or rubs. Regular rate and rhythm. Respiratory Examination: Clear bilaterally to auscultation. No work of breathing or using accessory muscles. Abdomen: Soft, nontender to palpation. Bowel sounds present. No organomegaly. Extremities: No clubbing, cyanosis, or edema. Peripheral pulses present in both legs. Neurological Examination: Patient is alert and oriented x3. Moves 4 extremities. Cranial nerves 2-12 are grossly normal. Laboratory Data: CBC is pending at the time of my dictation. BMP shows sodium 133 and glucose 173. ASSESSMENT/PLAN: 1. Alcohol withdrawal with delirium tremens. Patient does not have any episodes of delirium. The patient has not been restless for the last 3-4 days. Currently, he is on Librium and baclofen. We will continue with the same management. 2. Fever. Patient started having fever and cough. We are going to check an x-ray. We will draw blood cultures. We will start this patient on antibiotics. In this case, I will put him on Zosyn 3.325 g intravenous every 6 hours. We will check CBC results later. 3. Seizure disorder. Patient is on Keppra. According to neurology, this patient should be discharged with this medication. 4. Diabetes mellitus type 2. We will continue with sliding scale insulin. 5. Hypertension. Patient is on clonidine patch. 6. Physical deconditioning. Physical therapy working with this patient on a daily basis. Patient was admitted to the hospital because of possible withdrawal with delirium tremens. He has been admitted to the intensive care unit for many days. Now he is more calmed down. He was transferred to the floor 3 days ago. Reason why he is still here is because of physical deconditioning and because of lack of insurance, we cannot send him to rehab or set up any home health services. The patient was doing good yesterday and I was planning to send him home. Today, he woke up with fever of 102 plus cough so we are going to order further workup and we continue following this patient closely. cc: Gordo Pereira MD
[2017-02-09 09:17] LABS: BANDS 10 % (0-1); LYMPHS 6 % (21-51)
[2017-02-09 10:03] LABS: URINE MICRO REVIEW NEEDED? NO; URINE SOURCE VOIDED
[2017-02-09 11:27] LABS: BILIRUBIN URINE NEGATIVE (NEGATIVE); BLOOD URINE NEGATIVE (NEGATIVE); COLOR YELLOW; GLUCOSE URINE NEGATIVE (NEGATIVE); LEUKOCYTES URINE LARGE (NEGATIVE); NITRITE URINE NEGATIVE (NEGATIVE); PROTEIN URINE TRACE mg/dL (NEGATIVE); SP GRAVITY URINE 1.009; TURBIDITY URINE HAZY (CLEAR); UROBILINOGEN URINE NORMAL (NORMAL)
[2017-02-09 11:30] LABS: UR EPITHELIAL CELLS <10 /HPF (<10); URINE BACTERIA 4+ /HPF; URINE RBC <10 /HPF (<10); URINE WBC TNTC /HPF (<10)
--- NOTE | 2017-02-09 11:57 | Diag Imaging Result Doc PS360 ---
CHEST-2 VIEWS - 02/09/2017 INDICATION: fever, cough TECHNIQUE: COMPARISON: 01/29/2017 FINDINGS: Lung volumes are even lower, now severely low. There is worsening patchy infiltrate and atelectasis in the right lung base. The appearance is indeterminate. Stable surgical clips at the right hilum. Heart size is top normal. There is a lot of motion blur on the lateral view. IMPRESSION: Very low lung volumes. Worsening atelectasis and/or infiltrate at the right lung base. Electronically signed by Paul Garcia 02/09/2017 11:54 AM
[2017-02-09] MEDS: KEPPRA 750 MG in NS 100 ML IV SCH ×2 (12:59→22:35)
[2017-02-09] MEDS: M.V.I.-12 10 ML, FOLIC ACID 1 MG, MAGNESIUM SULFATE 1 GM, THIAMINE 100 MG in NS 1,000 ML IV SCH (23:22)
[2017-02-10] MEDS: ZOSYN 3.375 GM in NS 50 ML IV SCH ×2 (02:16→08:40)
[2017-02-10 05:48] LABS: MANUAL DIFF NEEDED? NO
[2017-02-10] MEDS: 1/2 NS 1,000 ML IV SCH ×4 (05:48→23:48)
[2017-02-10 06:09] LABS: BASO% 0.4 % (0.0-0.8); EOS# 0.07 X1000 (0.0-0.7); EOS% 0.6 % (0.0-10.0); HEMATOCRIT 38.8 % (42.0-52.0); IMM GRAN# 0.04 X1000 (0.0-0.04); IMM GRAN% 0.3 % (0.0-0.5); LYMPH# 0.92 X1000 (1.2-3.4); LYMPH% 7.5 % (20.5-51.1); MCH 33.2 PG (27-31); MCHC 33.5 g/dL (33-37); MCV 99.2 FL (81-99); MONO# 1.19 X1000 (0.11-0.59); MONO% 9.8 % (1.7-9.3); MPV 11.5 FL (7.4-10.4); NEUT% 81.4 % (42.2-75.2); PLT 121 X1000 (130-400); RBC 3.91 XMIL (4.7-6.1)
[2017-02-10] MEDS: HUMALOG SUBQ SCH ×4 (06:21→22:10)
[2017-02-10 07:10] LABS: AGAP 13; BUN 15 mg/dL (8-22); CALCIUM 8.8 mg/dL (8.8-10.2); CHLORIDE 100 mmol/L (98-107); COSMO 282; POTASSIUM 4.2 mmol/L (3.5-5.1); SODIUM 141 mmol/L (136-145); TCO2 28 mmol/L (25-35)
[2017-02-10] MEDS: KEPPRA 750 MG in NS 100 ML IV SCH ×2 (09:36→22:10)
[2017-02-10] MEDS: NORVASC PO SCH ×2 (09:37→22:11)
[2017-02-10] MEDS: LIORESAL PO SCH ×3 (09:37→22:11)
[2017-02-10] MEDS: LIBRIUM PO SCH ×3 (09:37→22:11)
--- NOTE | 2017-02-10 11:01 | Diag Imaging Result Doc PS360 ---
EXAM: US ABDOMEN-COMPLETE HISTORY: gram negative sepsis TECHNIQUE: Abdominal ultrasound COMMENT: The pancreatic head is normal in appearance the remainder is not well demonstrated. The aorta and inferior vena cava are normal in appearance where there are visible. The liver is slightly hyperechoic in appearance. There is no evidence of biliary dilatation the common bile duct measuring 3 mm. There is antegrade flow in the portal vein. The gallbladder is somewhat contracted. There is no sonographic Vieyra sign. The spleen is not enlarged. The kidneys are without evidence of hydronephrosis or mass. There are no abnormal fluid collections. IMPRESSION: Hepatic steatosis. This was also apparently present on 01/29/2017. Electronically signed by Basilio Coronel 02/10/2017 10:59 AM
--- NOTE | 2017-02-10 11:37 | PROGRESS NOTE ---
DATE: 02/10/2017 SUBJECTIVE: The patient since yesterday has not had any more fever or chills. Patient denies any abdominal pain. He was having some cough. X-rays from yesterday show worsening atelectasis versus infiltrate in the right lung base. OBJECTIVE: Vital Signs: Temperature 98.3 degrees, heart rate 70, respiratory 16, blood pressure 94/54, O2 saturation 100% on 2 L nasal cannula. General Examination: This is a 47-year-old, male, lying in bed in no acute distress. HEENT: Head is normocephalic, atraumatic. Anicteric sclerae and pale conjunctivae. Mucous membranes moist. Neck: Supple. No JVD noted. No carotid bruits. No lymphadenopathy. No thyromegaly. Cardiovascular exam: S1, S2 heard. No murmurs, gallops, or rubs. Regular rate and rhythm. Respiratory exam: Clear bilaterally to auscultation. No work of breathing or using accessory muscles. Abdomen: Soft, nontender to palpation. Bowel sounds present. No organomegaly. Extremities: No clubbing, cyanosis, or edema. Peripheral pulses present in both legs. Neurological exam: Patient alert and oriented x3. Moves 4 extremities. LABORATORY DATA: White cell count 12.1, hemoglobin 13.0, hematocrit 38.0, platelets 121 with normal BMP. MICROBIOLOGY: Reveals gram-negative rods and blood cultures. ASSESSMENT/PLAN: 1. Gram-negative bacteremia. The patient was admitted to the hospital for alcohol withdrawal, and he was doing fine so we were about to discharge him, but he started spiking fevers yesterday and today. Blood cultures are positive for gram-negative rods. Zosyn has been started. We will wait definitely for the final sensitivity. My long-term plan with this patient is as soon as we know what bacteria is causing this problem, we can set up antibiotics to be given to him at [facility] because he does not have insurance. In order to figure out why this patient has developed this infection, we will order a CT of the abdomen and pelvis and also abdominal ultrasound. We will follow the results. 2. Alcohol withdrawal with delirium tremens. Patient is stable for the last 5 days. He is on Librium and baclofen. Will continue with both medicines. 3. Seizure disorder. Patient is on Keppra and, according to neurology, he is supposed to with this medication at home. 4. Diabetes mellitus type 2. Sliding scale insulin is being used with this patient. 5. Hypertension. Placing the patient on clonidine patch. 6. Physical deconditioning. Patient has become very weak because of his stay in the hospital. So, physical therapy is working on the patient on a daily basis. cc: Gordo Pereira MD
[2017-02-10 12:09] LABS: INR 1.11; PROTIME 11.7 Seconds (9.2-11.7)
--- NOTE | 2017-02-10 13:05 | Diag Imaging Result Doc PS360 ---
EXAM: CT ABDOMEN/PELVIS W/WO CONTRAS HISTORY: gram negative sepsis TECHNIQUE: CT of the abdomen and pelvis with oral and with and without intravenous contrast with dose reduction (clarity.) COMMENT: There is apparent atelectasis in the lingula. There are no previous CT examinations. There are calcifications in the right coronary artery. There are no apparent gallstones in the gallbladder is contracted. There is no evidence of nephrolithiasis. The appendix is normal in appearance. The aorta is not distended and the mesenteric vessels are patent. The pancreas is normal in appearance. The liver is unremarkable. The adrenal glands are not enlarged. The colon and small bowel are unremarkable in appearance. There is no evidence of significant adenopathy. There is some perinephric fluid present on the right side with an area of contour bulge and abnormal decreased contrast enhancement in the anterior mid right renal cortex. Possibility of a small focus of pyelonephritis cannot be excluded. CT of the pelvis: The urinary bladder is slightly distended. There is a fat-containing umbilical hernia. There is no evidence of free fluid. There are extensive arterial calcifications throughout the pelvis and visualized thighs as well as calcifications in the corpora cavernosa of the penis bilaterally. There are bone islands in the left femoral head and degenerative disc changes throughout the lumbar spine. IMPRESSION: 1. Atelectasis. 2. Questionable right pyelonephritis versus small cortical mass. Mild urinary retention in the bladder. 3. Atherosclerosis. Electronically signed by Basilio Coronel 02/10/2017 1:03 PM
[2017-02-10] MEDS ORDERED: NS 250 ML ONE (14:20)
--- NOTE | 2017-02-10 14:57 | PROGRESS NOTE ---
DATE: 02/10/2017 CONCLUSION: The patient has a gram-negative georgi bacteremia. It appears that it is going to be identified as Klebsiella. I think the origin of it would be a pneumonia which on chest x-ray there was a possible right lower lobe infiltrate. The patient on his CAT scan said that there could be an area of pyelonephritis however the patient's urine culture is negative. RECOMMENDATIONS: I have switched the patient from Zosyn to cefepime pending final identification and susceptibility testing. I am going to go ahead and order a bladder scan to be taken to measure postvoid residual urine because on CT scan a distended bladder was seen. I have ordered a chest CT scan. DISCUSSION: The patient was unable provide a history. According to the chart, he came to the emergency room after being found unresponsive after being found unresponsive in the middle of the street. He had an alcohol level of 22. He only drinks 2-3 times per week and only 1-2 beers. He became completely alert and oriented. He only speaks [place]. [place] [address], hemoglobin 13 and platelet count 121,000. The creatinine is 1. GFR is greater than 60. A CT scan of the abdomen and pelvis shows possible urinary retention and also a right pyelonephritis. Abdominal ultrasound shows hepatic steatosis. Chest x-ray shows a possible right lower lobe infiltrate. PAST MEDICAL HISTORY: Positive for diabetes, seizures, and hypertension. PAST SURGICAL HISTORY: Is positive for what sounds like an empyema and eventually he required surgery for it. SOCIAL HISTORY: The patient is . He lives with his family. 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 He does not smoke cigarettes and he does not abuse drugs. He apparently drinks approximately 3 times a week with only beer and only 1-2 beers at a day. HOME MEDICATIONS: There are no known home medications. SOCIAL HISTORY: Patient is . He lives with his family. 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 He does not smoke cigarettes or abuse drugs. He does drink alcoholic beverages as mentioned above. It is noted in the patient's CT scan that there may be a urinary retention. I am going to go ahead and order a bladder scan to be taken to measure postvoid residual urine. PHYSICAL EXAMINATION: Vital Signs: Temperature is 98.1 degrees, pulse 77, respirations 18, blood pressure 154/100. Patient is listed as being 5 feet 4 inches tall, and weighing 172 pounds. General: This is an obese, middle-aged male who is in no acute distress. Head , eyes, ears, nose, and throat: He is able to talk. No drainage noted from the nose or ears. There is no white patches on his tongue. Neck: No meningismus. Thorax: No increased AP diameter of the chest. Lungs: Clear to auscultation. Cardiovascular: Regular heart rate. Abdomen: Soft and nontender. Neurologic: Patient is awake. He can move his extremities. There is no tremor. Thank you for the consult. cc: Frederick Gusman MD MTDD
[2017-02-10] MEDS: MAXIPIME 2 GM/NS 2 GM/100 ML IVPB IV SCH (15:40)
--- NOTE | 2017-02-10 16:17 | Diag Imaging Result Doc PS360 ---
CT THORAX W/O CONTRAST - 02/10/2017 INDICATION: pneumonia TECHNIQUE: A CT dose reduction protocol was used. COMPARISON: CT abdomen pelvis from earlier today FINDINGS: There is stable significant right hemidiaphragm elevation. Stable multifocal linear atelectasis or scarring in the lung bases particularly on the right side. Airways are clear. No adenopathy. There is advanced calcified coronary artery disease. There is a left PICC line in good position. No focal infiltrates. No pneumothorax or pleural effusion. There are moderate degenerative changes of the spine. No acute or suspicious bony lesion. IMPRESSION: Negative for pneumonia. Electronically signed by Paul Garcia 02/10/2017 4:15 PM
[2017-02-10] MEDS: M.V.I.-12 10 ML, FOLIC ACID 1 MG, MAGNESIUM SULFATE 1 GM, THIAMINE 100 MG in NS 1,000 ML IV SCH (22:10)
[2017-02-11] MEDS: MAXIPIME 2 GM/NS 2 GM/100 ML IVPB IV SCH (03:46)
[2017-02-11 04:02] LABS: MANUAL DIFF NEEDED? NO
[2017-02-11 04:11] LABS: BASO% 0.4 % (0.0-0.8); EOS# 0.06 X1000 (0.0-0.7); EOS% 0.9 % (0.0-10.0); HEMATOCRIT 33.2 % (42.0-52.0); IMM GRAN# 0.02 X1000 (0.0-0.04); IMM GRAN% 0.3 % (0.0-0.5); LYMPH# 0.76 X1000 (1.2-3.4); LYMPH% 11.2 % (20.5-51.1); MCH 33.2 PG (27-31); MCHC 33.1 g/dL (33-37); MCV 100.3 FL (81-99); MONO# 0.78 X1000 (0.11-0.59); MONO% 11.5 % (1.7-9.3); MPV 11.6 FL (7.4-10.4); NEUT% 75.7 % (42.2-75.2); PLT 92 X1000 (130-400); RBC 3.31 XMIL (4.7-6.1)
[2017-02-11 04:49] LABS: AGAP 9; BUN 8 mg/dL (8-22); CHLORIDE 106 mmol/L (98-107); COSMO 277; POTASSIUM 3.4 mmol/L (3.5-5.1); SODIUM 139 mmol/L (136-145); TCO2 24 mmol/L (25-35)
[2017-02-11] MEDS: 1/2 NS 1,000 ML IV SCH (05:35)
[2017-02-11] MEDS ORDERED: CALCIUM GLUCONATE 1 GM in NS 50 ML IV ONE (05:52)
[2017-02-11] MEDS: HUMALOG SUBQ SCH ×2 (06:37→11:26)
[2017-02-11] MEDS: NORVASC PO SCH (09:26)
[2017-02-11] MEDS: KEPPRA 750 MG in NS 100 ML IV SCH (09:26)
[2017-02-11] MEDS: LIORESAL PO SCH (09:26)
[2017-02-11] MEDS: LIBRIUM PO SCH (09:26)
[2017-02-11 10:58] VITALS: BP 112/78
--- NOTE | 2017-02-11 15:46 | DISCHARGE SUMMARY ---
ADMISSION DATE: 01/29/2017 DISCHARGE DATE: 02/11/2017 CONSULTATIONS: 1. Dr. Vito Downs with Neurology. 2. Dr. Frederick Gusman with Infectious Disease. PERTINENT PROCEDURES: 1. Head CT showed right superior frontal scalp contusion and mild chronic microvascular disease. No intracranial hemorrhage. 2. Chest x-ray showed low lung volumes. No acute disease. 3. Abdominal ultrasound was a very challenging exam. Severely abnormal liver, probably fatty liver disease. 4. Repeat abdominal ultrasound showed hepatic steatosis. 5. Abdomen and pelvis CT showed atelectasis, questionable right pyelonephritis versus small cortical mass. Mild urinary retention in the bladder. Atherosclerosis. 6. Chest CT negative for pneumonia. DISCHARGE DIAGNOSES: 1. Gram-negative bacteremia, secondary to Klebsiella pneumoniae. The patient discharged on p.o. Levaquin. 2. Right lower lobe pneumonia. The patient being discharged on p.o. Levaquin. 3. Alcohol withdrawal with delirium tremens, now stable. Continue on Librium. 4. Seizure disorder. Continue Keppra. 5. Diabetes mellitus. A1c was 6.2. He is to follow a diabetic diet. Follow up with his primary care provider. 6. Hypertension. Continue lisinopril/hydrochlorothiazide. Controlled. 7. Physical deconditioning. The patient has worked with Physical Therapy. The patient is to return home with family at discharge. HOSPITAL COURSE: Mr. Love is a 47-year-old male, with past medical history of diabetes, seizure disorder and hypertension, brought to the ED via EMS after being found unresponsive in the middle of the street. Per the patient, he was at home. He took a nap at noon and, after that, he does not remember anything. Apparently, he vomiting, he hit his head at the level of the frontal area. He states that he did not take any medication for blood pressure or seizures, and sometimes he takes treatment for his diabetes, but he does not remember the name of the pill. Apparently, the last time he had a seizure was 5 years ago. His alcohol level was 22. He drinks 2 to 3 times per week, and only 1 to 2 beers. He had a beer on the morning of his admission. At the time of his examination, he was completely alert and oriented x3. He only speaks Hebrew. He followed commands and moved all 4 extremities. Given his history of seizure disorder, he was admitted to the ICU. Consult with neuro, EEG. A head CT was negative for anything acute. Laboratory data showed mild hyponatremia, as well as hypokalemia. His AST and ALT were elevated, and albumin was 5.49. He had Ativan p.r.n. for seizures, as well as alcohol withdrawal. Placed on IV fluids and a banana bag, and abdominal ultrasound. After speaking with the family, the patient does have a history of alcohol abuse. He drinks up to, at least, 8 cans of beer per day. The patient did go into alcohol withdrawal with delirium tremens. He continued on benzodiazepines, as well as 4- point restraints. He remained in the ICU for close monitoring. He was also on the DT protocol, on an Ativan drip. On 02/04/2017, the patient was able to transfer to the regular floor. He was off the DT protocol, not requiring any extra Ativan pushes. Physical Therapy was called in to work with the patient, secondary to his weakness. The patient, on February 09, woke up with 102+ fever with cough. He was started on IV antibiotics. Dr. Frederick Gusman was consulted. Blood cultures were obtained. They were growing out Gram-negative rods. Final culture with Klebsiella pneumoniae. [place] he had a right lower lobe infiltrate on his chest x-ray. He subsequently was changed to cefepime, and he will be discharged on p.o. Levaquin. Due to the patient's lack of insurance, he is having to be discharged home with his family. VITAL SIGNS AT TIME OF DISCHARGE: Temperature is 97.8 degrees, heart rate 88, respirations 18, blood pressure is 112/78, O2 was 100% on room air. DISCHARGE DIET: Diabetic. DISCHARGE MEDICATIONS: 1. Librium 10 mg p.o. t.i.d. 2. Keppra 750 mg p.o. b.i.d. 3. Levofloxacin 750 mg p.o. daily. 4. Lisinopril/hydrochlorothiazide 20/12.5, one each p.o. daily. FOLLOWUP: Mr. Love is being discharged home with family. He has been educated daily on alcohol cessation and abstinence, along with the family, as well as following a diabetic diet and taking his medications as instructed. He will need to either follow up at [facility] or find a primary care physician and follow up in 7 to 10 days. He can return to the ED for any worsening of symptoms. Dictated by MEENU Romero for Gordo Pereira MD cc: Gordo Pereira MD
== END 2017-02-11 13:02 | disposition home or self-care (01) ==
LOC: ED 14:30 → SUATTDRO 17:54 → ICU 17:54 → 4N 02-04 21:25
PROVIDERS: ATTEND Internal Medicine